=== PATIENT | male | born 1970 | race Caucasian/White ===

== ENCOUNTER → 2022-01-15 | Day surgery (SDC) | payer BC ==
[~2022-01-15] MED LIST: CRESTOR40 MG PO; DILT60TA3 PO; EMPA25TA3 PO; IPRATRPIUM/ALBUTEROL 0.5/2.5MG 3 ML NEBU. NEB PRN; IV RINGERS SOLUTION,LACTATED 1,000 ML IV SCH; LIDOCAINE 2% PF 5 ML VIAL. ONE; METF10007 PO; ONDANSETRON PF 4 MG/2 ML VIAL. IV PRN; PROPOFOL 10,000 MCG/ML (20ML) VIAL IV ONE; ROPI6TAB2 PO; SEMA0.25 SQ
[2022-01-15 11:02] VITALS: BP 139/98
== END | disposition home or self-care (01) ==
LOC: SURG 09:06
PROVIDERS: ATTEND Internal Medicine Gastroenterology
DX: Z12.11 Encounter for screening for malignant neoplasm of colon (principal); K63.5 Polyp of colon; E11.9 Type 2 diabetes mellitus without complications; I10 Essential (primary) hypertension; G47.33 Obstructive sleep apnea (adult) (pediatric); E78.00 Pure hypercholesterolemia, unspecified; Z86.010 Personal history of colon polyps; Z88.0 Allergy status to penicillin; Z88.8 Allergy status to other drugs, medicaments and biological substances; Z79.84 Long term (current) use of oral hypoglycemic drugs
CPT/HCPCS: 45385; 82947; J2001; J2704; J7120